=== PATIENT | female | born 1945 | race Caucasian/White ===

== ENCOUNTER 2019-09-30 08:23 | Outpatient (CLI) | payer MEDICARE, SELFPAY ==
--- NOTE | 2019-09-30 10:00 | NEURO_ITS ---
Patient Number: [id number] Impression: # Complains of numbness of hands. # Bilateral Carpal Tunnel Syndrome (sensory). # Bilateral median involvement higher up-- Questionable pronator syndrome vs cross innervation. # Normal needle/EMG exam. Nerve Conduction Studies Anti Sensory Summary Table Stim Site NR Peak (ms) P-T Amp (?V) Site1 Site2 Delta-P (ms) Dist (cm) Arcenio (m/s) Left Median Anti Sensory (2-3nd Digit) Wrist 6.0 5.4 Wrist 2-3nd Digit 6.0 14.0 23 Wrist 5.6 19.6 Wrist 2-3nd Digit 6.0 14.0 23 Right Median Anti Sensory (2-3nd Digit) Wrist 4.5 16.3 Wrist 2-3nd Digit 4.5 14.0 31 Wrist 5.3 36.6 Wrist 2-3nd Digit 4.5 14.0 31 Left Radial Anti Sensory (Base 1st Digit) Wrist 2.1 10.8 Wrist Base 1st Digit 2.1 0.0 Right Radial Anti Sensory (Base 1st Digit) Wrist 2.2 20.7 Wrist Base 1st Digit 2.2 0.0 Left Ulnar Anti Sensory (5th Digit) Wrist 2.6 51.5 Wrist 5th Digit 2.6 14.0 54 Right Ulnar Anti Sensory (5th Digit) Wrist 2.3 50.2 Wrist 5th Digit 2.3 14.0 61 Motor Summary Table Stim Site NR Onset (ms) O-P Amp (mV) Site1 Site2 Delta-0 (ms) Dist (cm) Arcenio (m/s) Left Median Motor (Abd Poll Brev) Wrist 3.2 2.5 Elbow Wrist 9.9 31.0 31 Elbow 13.1 1.5 Right Median Motor (Abd Poll Brev) Wrist 3.0 3.5 Elbow Wrist 6.8 27.0 40 Elbow 9.8 0.8 Left Ulnar Motor (Abd Dig Minimi) Wrist 2.7 6.9 A Elbow Wrist 5.3 29.0 55 A Elbow 8.0 5.5 Right Ulnar Motor (Abd Dig Minimi) Wrist 2.4 6.2 A Elbow Wrist 4.7 28.0 60 A Elbow 7.1 5.5 F Wave Studies NR F-Lat (ms) L-R F-Lat (ms) Left Median (Mrkrs) (Abd Poll Brev) 27.02 0.70 Right Median (Mrkrs) (Abd Poll Brev) 27.72 0.70 Left Ulnar (Mrkrs) (Abd Dig Min) 27.39 0.11 Right Ulnar (Mrkrs) (Abd Dig Min) 27.50 0.11 EMG Side Muscle Nerve Root Ins Act Fibs Amp Dur Recrt Comment Right 1stDorInt Ulnar C8-T1 Nml Nml Nml Nml Nml Right Ext Indicis Radial (Post Int) C7-8 Nml Nml Nml Nml Nml Right Ext Digitorum Radial (Post Int) C7-8 Nml Nml Nml Nml Nml Right BrachioRad Radial C5-6 Nml Nml Nml Nml Nml Right PronatorTeres Median C6-7 Nml Nml Nml Nml Nml Right Abd Poll Brev Median C8-T1 Nml Nml Nml Nml Nml Left 1stDorInt Ulnar C8-T1 Nml Nml Nml Nml Nml Left Ext Indicis Radial (Post Int) C7-8 Nml Nml Nml Nml Nml Left Ext Digitorum Radial (Post Int) C7-8 Nml Nml Nml Nml Nml Left BrachioRad Radial C5-6 Nml Nml Nml Nml Nml Left PronatorTeres Median C6-7 Nml Nml Nml Nml Nml Left Abd Poll Brev Median C8-T1 Nml Nml Nml Nml Nml MTDD
== END 2019-09-30 08:24 | disposition home or self-care (01) ==
PROVIDERS: PCP Family Medicine; Visit Provider Family Medicine
DX: M47.892 Other spondylosis, cervical region (principal); G56.03 Carpal tunnel syndrome, bilateral upper limbs
CPT/HCPCS: 95886; 95911

== ENCOUNTER → 2020-06-23 10:17 | Outpatient (CLI) | payer MEDICARE, SELFPAY ==
--- NOTE | ~2020-06-23 | XR_ITS ---
EXAMINATION: XR chest 2V 06/23/2020 10:30 INDICATION: Shortness of breath. Cough. PROCEDURE: 2 view chest COMPARISON: 04/21/2013 FINDINGS: The lungs are clear. The cardiomediastinal silhouette is within normal limits. There are no pleural effusions. There is no pneumothorax suspected. IMPRESSION: 1: NO ACUTE CARDIOPULMONARY DISEASE. Reviewed, dictated and finalized at location A. NG AND POLISHING SUPERVISOR
== END ==
PROVIDERS: PCP Family Medicine; Visit Provider Family Medicine
DX: R06.02 Shortness of breath (principal)
CPT/HCPCS: 71046

== ENCOUNTER 2020-07-23 09:43 | Outpatient (CLI) | payer MEDICARE, SELFPAY ==
--- NOTE | 2020-07-26 16:57 | WPDHOLTEREM ---
Holter/Event Monitor Holter/Event Monitor Date of procedure: 07/23/20 Procedure Type: 24 hour holter monitor Indications: Palpitations Conclusion: 1. 24 hour holter monitor on 07/23/20. 2. Underlying rhythm is sinus rhythm. HR range 62-103 bpm; average HR 74 bpm. 3. There are 2 prmature supraventricular complexes. No supraventricular tachycardia. 4. There are 566 premature ventricular complexes, 186 ventricular bigeminy and 9 ventricular trigeminy. No ventricular tachycardia. 5. No sinoatrial or atrioventricular blocks. No significant pauses greater than 2 seconds. 6. No symptoms available for correlation.
== END 2020-07-23 09:44 | disposition home or self-care (01) ==
PROVIDERS: PCP Family Medicine; Visit Provider Family Medicine
DX: R00.2 Palpitations (principal)
CPT/HCPCS: 93225; 93226

== ENCOUNTER 2020-10-05 09:27 | Outpatient (CLI) | payer MEDICARE, SELFPAY | END 2020-10-05 09:28 | disposition home or self-care (01) | LOC: ANHCOVIDVC 09:28 | PROVIDERS: PCP Family Medicine | DX: Z23 Encounter for immunization (principal) | CPT/HCPCS: 0001A; 91300 ==

== ENCOUNTER 2020-10-26 09:18 | Outpatient (CLI) | payer MEDICARE, SELFPAY | END 2020-10-26 09:19 | disposition home or self-care (01) | LOC: ANHCOVIDVC 09:19 | PROVIDERS: PCP Family Medicine | DX: Z23 Encounter for immunization (principal) | CPT/HCPCS: 0002A; 91300 ==

== ENCOUNTER → 2020-10-30 00:50 | Outpatient (CLI) | payer MEDICARE, SELFPAY ==
[2020-10-30 19:43] LABS: SARS-CoV-2 RNA PCR Negative
== END ==
PROVIDERS: PCP Family Medicine; Visit Provider Internal Medicine Gastroenterology
DX: Z01.812 Encounter for preprocedural laboratory examination (principal); Z20.822 Contact with and (suspected) exposure to COVID-19
CPT/HCPCS: C9803; U0003; U0005

== ENCOUNTER 2020-11-01 08:25 | Outpatient (CLI) | payer MEDICARE, SELFPAY ==
--- NOTE | ~2020-11-01 | MR_ITS ---
EXAMINATION: MR abdomen wo con DATE: 11/01/2020 09:29 INDICATION: Cyst of pancreas. TECHNIQUE: Magnetic resonance imaging (MRI) of the abdomen was performed without intravenous contrast . Sequences included coronal T2-weighted FS FSE, coronal and axial FS FIESTA, axial T2-weighted FSE, coronal LAVA-flex, axial STIR FSE, axial DWI, axial dual-echo T1-weighted FSPGR, and axial LAVA. COMPARISON: Abdomen MRI 10/12/2018, 02/27/2017 FINDINGS: There is diffuse hepatic steatosis. There is cystic thickening of the fundus of the gallbladder, cons istent with adenomyomatosis. There are chronic lesions in the spleen measuring up to 7 mm, likely lisseth ign. There are three cystic lesions in the pancreas measuring up to 8 mm. The adrenal glands are norm al. There is an 11 mm hemorrhagic cyst in right kidney. There are simple cysts in the kidneys measuri ng up to 13 mm on the right. There are no dilated loops of bowel. There are no pathologically enlarge d lymph nodes. There is no free intraperitoneal fluid. IMPRESSION: 1. Three cystic lesions of the pancreas, stable from 02/27/17. The differential diagnosis includes pse udocyst, intraductal papillary mucinous neoplasm (IPMN), mucinous cystic neoplasm (MCN), serous cysta denoma, and neuroendocrine tumor. Abdomen MRI without and with contrast is recommended in two years. Reviewed, dictated and finalized at location A. IMPRESSION: 1. Three cystic lesions of the pancreas, stable from 02/27/17. The differential diagnosis includes pseudocyst, intraductal papillary mucinous neoplasm (IPMN), mucinous cystic neoplasm (MCN), serous cystadenoma, and neuroendocrine tumor. A bdomen MRI without and with contrast is recommended in two years.
== END 2020-11-01 08:26 | disposition home or self-care (01) ==
PROVIDERS: PCP Family Medicine; Visit Provider Family Medicine
DX: K86.2 Cyst of pancreas (principal)
CPT/HCPCS: 74181

== ENCOUNTER 2020-11-02 01:18 | Day surgery (SDC) | payer MEDICARE, SELFPAY ==
[2020-10-25 13:46] VITALS: BMI 24.9
[2020-11-02 10:40] VITALS: BP 119/61; PULSE 83; RESP 16; TEMP 36.6; O2SAT 100; BMI 24.5
[2020-11-02] MEDS: LACTATED RINGERS 1,000 ML 150 ML IV CONT (10:52)
--- NOTE | 2020-11-02 10:58 | WPDANESEPPF ---
Anes - Initial Pre Proc Eval Procedure: Operation Date: 11/02/20 12:00 Proposed Procedures p Esophagogastroduodenoscopy & Screening Colonoscopy - Tony Flanagan MD Date/Time: 11/02/20 10:58 Surgeon: Tony Flanagan MD Pre Op Diagnosis: hx colon polyps, GERD Patient Data Age: 75 Gender: F Height: 1.68 m Weight: 68.8 kg Last Vital Signs Temp 36.6 C 11/02/20 10:40 Pulse 83 11/02/20 10:40 Resp 16 11/02/20 10:40 BP 119/61 11/02/20 10:40 Pulse Ox 100 11/02/20 10:40 Allergies Allergy/AdvReac Type Severity Reaction Status Date / Time Sulfa (Sulfonamide Allergy Unknown unknown Verified 11/02/20 10:37 Antibiotics) codeine AdvReac Intermediate nausea Verified 11/02/20 10:37 and GI upset Home Medications Medication Instructions Recorded Confirmed Type cyclobenzaprine 10 mg tablet 10 mg PO TID PRN #270 tablet 06/26/19 11/02/20 Rx clonazepam 0.5 mg tablet 0.5 mg PO BID PRN tablet 01/14/20 11/02/20 History rosuvastatin 40 mg tablet 40 mg PO DAILY #90 tablet 05/19/20 11/02/20 Rx tramadol 50 mg tablet 50 mg PO Q6H PRN #60 tablet 05/26/20 11/02/20 Rx gabapentin 300 mg capsule 300 mg PO TID #270 cap 07/15/20 11/02/20 Rx amitriptyline 20 mg PO DAILY 10/25/20 11/02/20 History linaclotide [Linzess] 72 mcg PO Q3D 10/25/20 11/02/20 History Patient hx anesthesia problems: none Family hx anesthesia problems: none [facility] Past Medical History Medical History (Updated 11/02/20 @ 07:52 by Alejandro Parada MD) Abnormal fasting glucose Anxiety Arthritis Benign colon polyp Carpal tunnel syndrome on both sides Chronic constipation Chronic right shoulder pain COVID-19 (05/14/20) Degenerative lumbar spinal stenosis Depression Encounter for hepatitis C screening test for low risk patient Exposure to COVID-19 virus Fatty infiltration of liver (11/01/20) fatty changes of liver on MRI 11/01/2020 Frequent PVCs GERD (gastroesophageal reflux disease) Hypercalcemia IBS (irritable bowel syndrome) Intermittent palpitations Irritable bowel syndrome with constipation Kidney disease Mixed hyperlipidemia Oral candidiasis Osteoarthritis of knees, bilateral Osteoporosis Pancreatic cyst 7 mm cystic lesion of the pancreas on MRI of the abdomen on 10/12/2018 with recheck recommended in 2 years . Unchanged on MRI 11/01/2020 with recheck in 2 years Shortness of breath Vitamin D deficiency, unspecified Surgical History Surgical History History of appendectomy History of tubal ligation Hx of breast lump removal Family History Family History Mother Hypertension Sibling Family history of coronary artery disease Acute myocardial infarction Father Lung cancer Social History Social History (Updated 08/23/20 @ 13:18 by Ellie Rojas MA) Smoking status: Former smoker Tobacco type: cigarettes Smoking end date: 06/18/79 Alcohol intake: former Substance use: never Substance use type: does not use Living arrangements: with family Gender identity (if verbalized by the patient): Female Spiritual care concerns: No Anes - Eval Final PreProcedure Day of Procedure 11/02/20 10:58 Patient weight: normal Heart: regular rate and rhythm Lungs: clear to auscultation and normal air movement Airway: Mallampati scale class II Neurological: alert and oriented Last oral intake: >/= 8 hours ASA classification: III Emergent: no Anesthetic plan: proceed Anesthesia type and monitoring: general GIVS and standard monitoring Informed Consent: The patient's anesthetic plan and its attendant risks and benefits were discussed with the patient/family/POA. Questions were solicited and answers provided to the satisfaction of the patient/family/POA.
--- NOTE | 2020-11-02 11:39 | PM.HPGS ---
History of Present Illness History of Present Illness Consent: Risks, benefits, and alternatives have been discussed and questions answered. Patient agrees to proceed with procedure. Chief complaint: hx colon polyps, GERD Narrative: Marianne Titus is a 75 year old female with gerd using famotidine prn, colon polyps 2014 Review of Systems Constitutional: Constitutional: Denies headache(s) and Denies weakness Eyes: Eyes: Denies blurry vision ENT: Reports Normal hearing present, Denies headache(s) and Denies neck pain Cardiovascular: Cardiovascular: Denies chest pain and Denies dyspnea Respiratory: Respiratory: Denies dyspnea Gastrointestinal: Gastrointestinal: Reports no additional gastrointestinal complaints Genitourinary: Genitourinary: Denies dysuria Musculoskeletal: Musculoskeletal: Denies neck pain Integumentary/Breasts: Skin/Breast: Denies dry skin Neurologic: Reports Normal hearing present, Denies headache(s) and Denies weakness Psychiatric: Psychiatric: Denies anxiety Endocrine: Endocrine: Denies change in body appearance Hematologic/Lymphatic: Hematologic/Lymphatic: Denies easy bleeding Allergic/Immunologic: Allergic/Immunologic: Denies urticaria PMF Past Medical History Medical History (Updated 11/02/20 @ 11:40 by Tony Flanagan MD) Abnormal fasting glucose Anxiety Arthritis Benign colon polyp Carpal tunnel syndrome on both sides Chronic constipation Chronic right shoulder pain Colon polyp COVID-19 (05/14/20) Degenerative lumbar spinal stenosis Depression Encounter for hepatitis C screening test for low risk patient Exposure to COVID-19 virus Fatty infiltration of liver (11/01/20) fatty changes of liver on MRI 11/01/2020 Frequent PVCs GERD (gastroesophageal reflux disease) Hypercalcemia IBS (irritable bowel syndrome) Intermittent palpitations Irritable bowel syndrome with constipation Kidney disease Mixed hyperlipidemia Oral candidiasis Osteoarthritis of knees, bilateral Osteoporosis Pancreatic cyst 7 mm cystic lesion of the pancreas on MRI of the abdomen on 10/12/2018 with recheck recommended in 2 years . Unchanged on MRI 11/01/2020 with recheck in 2 years Shortness of breath Vitamin D deficiency, unspecified Surgical History Surgical History History of appendectomy History of tubal ligation Hx of breast lump removal Family History Family History Mother Hypertension Sibling Family history of coronary artery disease Acute myocardial infarction Father Lung cancer Social History Social History (Updated 08/23/20 @ 13:18 by Ellie Rojas MA) Smoking status: Former smoker Tobacco type: cigarettes Smoking end date: 06/18/79 Alcohol intake: former Substance use: never Substance use type: does not use Living arrangements: with family Gender identity (if verbalized by the patient): Female Spiritual care concerns: No Meds Home Medications and Allergies Home Medications Medication Instructions Recorded Confirmed Type cyclobenzaprine 10 mg tablet 10 mg PO TID PRN #270 tablet 06/26/19 11/02/20 Rx clonazepam 0.5 mg tablet 0.5 mg PO BID PRN tablet 01/14/20 11/02/20 History rosuvastatin 40 mg tablet 40 mg PO DAILY #90 tablet 05/19/20 11/02/20 Rx tramadol 50 mg tablet 50 mg PO Q6H PRN #60 tablet 05/26/20 11/02/20 Rx gabapentin 300 mg capsule 300 mg PO TID #270 cap 07/15/20 11/02/20 Rx amitriptyline 20 mg PO DAILY 10/25/20 11/02/20 History linaclotide [Linzess] 72 mcg PO Q3D 10/25/20 11/02/20 History Allergies Allergy/AdvReac Type Severity Reaction Status Date / Time Sulfa (Sulfonamide Allergy Unknown unknown Verified 11/02/20 10:37 Antibiotics) codeine AdvReac Intermediate nausea Verified 11/02/20 10:37 and GI upset Vital Signs Vital Signs - 24 hr 11/02/20 10:40 Te
[2020-11-02 12:03] VITALS: BP 110/61; PULSE 69; RESP 17; O2SAT 94
[2020-11-02 12:13] VITALS: BP 115/63; PULSE 68; RESP 18; O2SAT 96
[2020-11-02 12:23] VITALS: BP 123/65; PULSE 67; RESP 20; O2SAT 98
== END 2020-11-02 12:42 | disposition home or self-care (01) ==
PROVIDERS: PCP Family Medicine; Visit Provider Internal Medicine Gastroenterology
PROC: 0DJ08ZZ Inspection of Upper Intestinal Tract, Via Natural or Artificial Opening Endoscopic (ICD-10-PCS; CPT 43235; principal; 2020-11-02 12:00)
DX: Z12.11 Encounter for screening for malignant neoplasm of colon (principal); K64.4 Residual hemorrhoidal skin tags; Z86.010 Personal history of colon polyps; K21.00 Gastro-esophageal reflux disease with esophagitis, without bleeding; K29.50 Unspecified chronic gastritis without bleeding; E78.2 Mixed hyperlipidemia; M81.0 Age-related osteoporosis without current pathological fracture; E55.9 Vitamin D deficiency, unspecified; F41.8 Other specified anxiety disorders; K76.0 Fatty (change of) liver, not elsewhere classified; I49.3 Ventricular premature depolarization; K58.1 Irritable bowel syndrome with constipation; Z86.16 Personal history of COVID-19; Z87.891 Personal history of nicotine dependence
CPT/HCPCS: 43239; G0105; 87081; 88305; C9803; J2704; J7120; U0003; U0005

== ENCOUNTER → 2021-11-07 15:58 | Outpatient (CLI) | payer MEDICARE, SELFPAY ==
--- NOTE | ~2021-11-07 | MM_ITS ---
EXAMINATION: MM screening chrissy BI w rina HISTORY: Screening mammogram TECHNIQUE: Craniocaudal and mediolateral oblique 3-D tomosynthesis images were obtained and synthetic 2-D images were generated. CAD analysis was submitted and interpreted. COMPARISON: 04/17/2018, 03/13/2017, 10/29/2015 bilateral screening mammogram examinations BREAST PARENCHYMAL COMPOSITION: There are scattered areas of fibroglandular density. FINDINGS: There are scattered benign calcifications. There is no evidence of suspicious mass, calcifi cation, or architectural distortion to suggest malignancy in either breast. There has been no suspici ous interval change. IMPRESSION: 1. No mammographic evidence of malignancy. 2. Recommend routine screening mammography in one year. BI-RADS Category 2: Benign finding(s). Reviewed, dictated and finalized at location A.
== END ==
PROVIDERS: PCP Family Medicine; Visit Provider Family Medicine
DX: Z12.31 Encounter for screening mammogram for malignant neoplasm of breast (principal)
CPT/HCPCS: 77063; 77067

== ENCOUNTER 2023-01-11 12:04 | Outpatient (CLI) | payer MEDICARE, SELFPAY ==
--- NOTE | ~2023-01-11 | XR_ITS ---
Thoracic spine: Clinical Indication: Back pain AP and lateral views were performed. No fracture is seen. There is normal alignment of the vertebrae. The intervertebral disc spaces appe ar normal. Paravertebral soft tissues appear normal. There is DISH of the thoracic spine. Impression: DISH of the mid thoracic spine. Reviewed, dictated and finalized at location . Impression: DISH of the mid thoracic spine.
--- NOTE | 2023-01-12 16:00 | P.PCNHOL_ITS ---
Holter/Event Monitor Holter/Event Monitor Date of procedure: 01/12/23 Holter/Event Procedure: 24 Hr Holter Monitor Diagnosis: Palpitations Indications: Palpitations Image/Tracing Quality: Favorable Finding: The basic rhythm is sinus with normal RI QRS and QT interval. The heart rate varies from a minimum of 49 to a maximum of 88. The average heart rate was 60. There were no significant pauses there were no examples of abnormal AV conduction observed. Supraventricular ectopic activity was rare. PACs occur at a rate of less than 1 complex per hour there were no runs of atrial tachyarrhythmias and there was no evidence of atrial fibrillation. Ventricular ectopic activity was occasional to frequent consisting of PVCs scattered throughout the tracing these occurred at an average rate of 22 beats per hour. Most of these were single complexes there were several ventricular couplets identified there were no ventricular triplets or runs. Patient did not have any symptoms during this procedure Conclusion: 1. 24 hour Holter monitor demonstrating sinus rhythm with normal heart rate variability rare atrial ectopics and occasional ventricular ectopics none of which are symptomatic 2. 24 hour Holter study done in 2020 in this laboratory had essentially the same type of findings Yaw Cummings MD [facility]
== END 2023-01-11 12:05 | disposition home or self-care (01) ==
PROVIDERS: PCP Family Medicine; Visit Provider Family Medicine
DX: I49.3 Ventricular premature depolarization (principal); M54.6 Pain in thoracic spine; G89.29 Other chronic pain; M48.14 Ankylosing hyperostosis [Forestier], thoracic region
CPT/HCPCS: 72072; 93225; 93226

== ENCOUNTER 2023-06-08 12:14 | Outpatient (CLI) | payer MEDICARE, SELFPAY ==
--- NOTE | ~2023-06-08 | CT_ITS ---
EXAMINATION: CT abdomen pelvis wo con DATE: 06/08/2023 12:33 INDICATION: Abdominal pain TECHNIQUE: Computed tomography (CT) of the abdomen and pelvis was performed without intravenous contr ast. Automated exposure control and iterative reconstruction technique were employed. The dose-length product was 237.13 mGy-cm. COMPARISON: MRI dated 11/01/2020 FINDINGS: Mild discoid atelectasis in the bilateral lower lobes. Arch size is normal. No pericardial or pleural effusion. Liver, gallbladder and bilateral adrenal glands are normal. Unchanged 8 mm cystic lesion i n the pancreas. Also without significant interval change are a few low-attenuation likely cystic lesi ons in the spleen the largest measuring up to 1.2 cm. No significant change in a couple right renal c ysts the larger simple low-attenuation cyst measuring 1.5 cm in a smaller high attenuation proteinace ous/hemorrhagic cyst measuring 1.2 cm the upper pole of the right kidney. Left kidney is normal. Jayesh ls are unremarkable with no wall thickening or obstruction. The appendix is not visualized. No perice jovi inflammatory change to suggest acute appendicitis. Bladder, uterus and bilateral adnexa are unrem arkable. No free intraperitoneal gas or fluid. No pathologically enlarged abdominal or pelvic lymphad enopathy. Small fat-containing umbilical hernia. Moderate lumbar and lower thoracic spondylosis. IMPRESSION: 1. No acute intra-abdominal/pelvic process. 2. No significant interval change in likely benign cystic lesions in the pancreas, spleen and right k idney. 3. Unchanged small fat-containing umbilical hernia. Reviewed, dictated and finalized at location A. TER CUT OFF OPERATOR IMPRESSION: 1. No acute intra-abdominal/pelvic process. 2. No significant interval change in likely benign cystic lesions in the pancre as, spleen and right kidney. 3. Unchanged small fat-containing umbilical hernia.
== END 2023-06-08 12:15 | disposition home or self-care (01) ==
PROVIDERS: PCP Family Medicine; Visit Provider Nurse Practitioner Family
DX: R10.30 Lower abdominal pain, unspecified (principal); R19.4 Change in bowel habit; K42.9 Umbilical hernia without obstruction or gangrene
CPT/HCPCS: 74176

== ENCOUNTER 2023-06-20 15:35 | Outpatient (CLI) | payer MEDICARE, SELFPAY ==
--- NOTE | ~2023-06-20 | XR_ITS ---
EXAMINATION: XR abdomen/kub 1V DATE: 06/20/2023 15:51 INDICATION: Unspecified abdominal pain. TECHNIQUE: A supine view of the abdomen on 2 radiographs was obtained. COMPARISON: CT abdomen and pelvis 06/08/2023 FINDINGS: There are no dilated loops of bowel. There is a large volume of stool in the colon. There a re phleboliths in the pelvis. IMPRESSION: 1. Large volume of stool in the colon. Reviewed, dictated and finalized at location E. ECT MANAGEMENT ADVISOR
[2023-06-20 16:38] LABS: Hematocrit 41.6 % (37.0-47.0); Hemoglobin 13.1 g/dL (12.0-15.0); Mean Corpuscular HGB Conc 31.5 g/dl (32-36); Mean Corpuscular Hemoglobin 31.2 pg (26-34); Mean Platelet Volume 11.5 fl (7.4-10.4); Platelet Count Result 160 k/mm3 (150-375); Red Cell Distribution Width 12.3 % (11.5-14.5); White Blood Count 6.1 K/mm3 (4.5-10.0)
[2023-06-20 16:51] LABS: Alanine Aminotransferase 21 U/L (6-35); Alkaline Phosphatase 66 U/L (38-126); Anion Gap 8 mmol/L (8-16); Aspartate Amino Transferase 28 U/L (14-36); Bilirubin,Total 0.4 mg/dL (0.2-1.3); Blood Urea Nitrogen 18 mg/dL (7-17); Calcium 9.8 mg/dL (8.4-10.2); Carbon Dioxide 26 mmol/L (22-30); Chloride 108 mmol/L (98-107); Estimated Glomerular Filt Rate 34; Glucose 119 mg/dL (65-110); Potassium 4.4 mmol/L (3.4-5.0); Sodium 142 mmol/L (137-145)
== END 2023-06-20 15:36 | disposition home or self-care (01) ==
PROVIDERS: PCP Family Medicine; Visit Provider Nurse Practitioner Family
DX: N18.30 Chronic kidney disease, stage 3 unspecified (principal); K59.09 Other constipation; E78.2 Mixed hyperlipidemia
CPT/HCPCS: 36415; 74018; 80053; 84443; 85027

== ENCOUNTER 2025-04-10 13:15 | Outpatient (CLI) | payer MEDICARE, SELFPAY ==
--- NOTE | ~2025-04-10 | CT_ITS ---
EXAMINATION: CT lumbar spine wo con COMPARISON: None HISTORY: worsening of pain in the low back TECHNIQUE: Axial images were obtained through the spine without IV contrast. Coronal, sagittal reconstruction images were obtained from the axial views. CT scan performed using dose optimization techniques including the following automated exposure control; adjustment of mA and/or kV; use of iterative reconstruction technique. Automatic exposure control was used to reduce radiation dose. Permanent radiation dose record is archived to PACS. FINDINGS: Grade 1 retrolisthesis of L3 on L4, grade 1 anterolisthesis of L4 on L5, no fracture is identified. Moderate loss of disc height throughout with multilevel moderate to severe canal and foraminal stenosis most marked at L2-3 and L4-5 grade outpatient MRI recommended. Soft tissues right kidney there are simple and probable hemorrhagic renal cysts the largest 2 x 2 cm but incompletely evaluated, renal ultrasound is recommended Impression: No acute abnormality. Reviewed, dictated and finalized at location P. Impression: No acute abnormality.
== END 2025-04-10 13:16 | disposition home or self-care (01) ==
LOC: MICIMG 13:15
PROVIDERS: PCP Family Medicine; Visit Provider Family Medicine
DX: Q61.3 Polycystic kidney, unspecified (principal); M43.16 Spondylolisthesis, lumbar region; R29.890 Loss of height; M48.061 Spinal stenosis, lumbar region without neurogenic claudication
CPT/HCPCS: 72131

== ENCOUNTER 2025-04-23 14:16 | Outpatient (CLI) | payer MEDICARE, SELFPAY ==
--- NOTE | ~2025-04-23 | US_ITS ---
US renal BI 04/23/2025 14:49 Procedure: Realtime transabdominal ultrasound of the kidneys and bladder. Indication: Renal cysts Comparison: No prior studies for comparison. Findings: Renal echotexture is normal bilaterally without hydronephrosis, contour deforming mass or renal calculus. There are bilateral renal cysts, largest on the right measuring 1.9 cm and 7 mm on the left. The right kidney measures 8.1 cm and left kidney measures 8.7 cm. Bladder within normal limits. Impression: 1: Bilateral renal cysts. Reviewed, dictated and finalized at location O. ERCIAL ATTACHE Impression: 1: Bilateral renal cysts.
== END 2025-04-23 14:17 | disposition home or self-care (01) ==
LOC: MICIMG 14:17
PROVIDERS: PCP Family Medicine; Visit Provider Family Medicine
DX: N28.1 Cyst of kidney, acquired (principal)
CPT/HCPCS: 76770